=== PATIENT | female | born 1950 | race Two or more races ===

== ENCOUNTER → 2017-11-23 | Outpatient (CLI) | payer OTHER ==
[~2017-11-23] MED LIST: CALCIONATE115 MG/5 M; MULTIVITAMINS1 EAC9; VITAMIN B-1250 MC1
== END | disposition home or self-care (01) ==
LOC: LAB 08:58
DX: E21.3 Hyperparathyroidism, unspecified (principal); M81.8 Other osteoporosis without current pathological fracture; E56.1 Deficiency of vitamin K; E88.89 Other specified metabolic disorders; E83.42 Hypomagnesemia; E03.8 Other specified hypothyroidism; E55.9 Vitamin D deficiency, unspecified; M85.9 Disorder of bone density and structure, unspecified; K76.9 Liver disease, unspecified; K75.9 Inflammatory liver disease, unspecified; M81.0 Age-related osteoporosis without current pathological fracture; N95.1 Menopausal and female climacteric states; R53.83 Other fatigue; R97.1 Elevated cancer antigen 125 [CA 125]; N94.6 Dysmenorrhea, unspecified; M89.9 Disorder of bone, unspecified; M94.9 Disorder of cartilage, unspecified; Z12.11 Encounter for screening for malignant neoplasm of colon; R10.9 Unspecified abdominal pain; E21.4 Other specified disorders of parathyroid gland; E21.5 Disorder of parathyroid gland, unspecified; E78.2 Mixed hyperlipidemia; E11.9 Type 2 diabetes mellitus without complications; R50.9 Fever, unspecified; R50.2 Drug induced fever; B33.8 Other specified viral diseases; B34.8 Other viral infections of unspecified site; I10 Essential (primary) hypertension; N30.00 Acute cystitis without hematuria; N92.6 Irregular menstruation, unspecified; D64.89 Other specified anemias; D50.8 Other iron deficiency anemias; E83.32 Hereditary vitamin D-dependent rickets (type 1) (type 2); E83.59 Other disorders of calcium metabolism; D39.8 Neoplasm of uncertain behavior of other specified female genital organs

== ENCOUNTER → 2017-12-03 11:04 | Outpatient (CLI) | payer OTHER | END | disposition home or self-care (01) | LOC: LAB 11:04 | DX: N60.12 Diffuse cystic mastopathy of left breast (principal); N60.11 Diffuse cystic mastopathy of right breast; E83.59 Other disorders of calcium metabolism; D39.8 Neoplasm of uncertain behavior of other specified female genital organs; N93.0 Postcoital and contact bleeding; Z12.11 Encounter for screening for malignant neoplasm of colon; R10.9 Unspecified abdominal pain ==

== ENCOUNTER → 2018-03-07 | Emergency (ER) | payer OTHER ==
[~2018-03-07] VITALS: Ht 152.4 cm; Wt 65.8 kg
== END | disposition home or self-care (01) ==
LOC: ER 15:37
DX: K57.32 Diverticulitis of large intestine without perforation or abscess without bleeding (principal)

== ENCOUNTER → 2018-07-22 07:05 | Outpatient (CLI) | payer OTHER | END | disposition home or self-care (01) | LOC: LAB 07:05 | DX: E55.9 Vitamin D deficiency, unspecified (principal); M85.9 Disorder of bone density and structure, unspecified; E21.2 Other hyperparathyroidism; M81.8 Other osteoporosis without current pathological fracture; E56.1 Deficiency of vitamin K; E88.89 Other specified metabolic disorders; E83.42 Hypomagnesemia; N92.5 Other specified irregular menstruation; N94.0 Mittelschmerz; N95.1 Menopausal and female climacteric states; R68.82 Decreased libido; E88.81 Metabolic syndrome and other insulin resistance; I10 Essential (primary) hypertension; E03.8 Other specified hypothyroidism; R19.09 Other intra-abdominal and pelvic swelling, mass and lump; E11.9 Type 2 diabetes mellitus without complications; R94.7 Abnormal results of other endocrine function studies; E78.2 Mixed hyperlipidemia ==

== ENCOUNTER 2018-08-12 11:37 | Outpatient (CLI) | payer OTHER | END 2018-08-12 16:25 | disposition home or self-care (01) | LOC: RAD 11:37 | DX: M17.0 Bilateral primary osteoarthritis of knee (principal) ==

== ENCOUNTER 2021-05-21 14:29 | Outpatient (CLI) | payer OTHER | END 2021-05-21 14:33 | disposition home or self-care (01) | LOC: RAD 14:29 | PROVIDERS: ATTEND Orthopaedic Surgery | DX: M25.551 Pain in right hip (principal) ==

== ENCOUNTER → 2021-09-11 08:16 | Outpatient (CLI) | payer OTHER | END | disposition home or self-care (01) | LOC: LAB 08:16 | PROVIDERS: ATTEND Orthopaedic Surgery | DX: E55.9 Vitamin D deficiency, unspecified (principal); M85.88 Other specified disorders of bone density and structure, other site; E56.1 Deficiency of vitamin K ==

== ENCOUNTER 2022-04-09 15:10 | Outpatient (CLI) | payer OTHER | END 2022-04-09 15:21 | disposition home or self-care (01) | LOC: RAD 15:10 | PROVIDERS: ATTEND Physical Medicine & Rehabilitation | DX: M25.561 Pain in right knee (principal) ==

== ENCOUNTER 2022-09-17 08:30 | Outpatient (CLI) | payer OTHER | END 2022-09-17 08:31 | disposition home or self-care (01) | LOC: LAB 08:30 | PROVIDERS: ATTEND Obstetrics & Gynecology Gynecology | DX: M81.0 Age-related osteoporosis without current pathological fracture (principal) ==

== ENCOUNTER 2022-10-08 13:35 | Outpatient (CLI) | payer OTHER | END 2022-10-08 13:47 | disposition home or self-care (01) | LOC: RAD 13:35 | PROVIDERS: ATTEND Physical Medicine & Rehabilitation | DX: M54.2 Cervicalgia (principal) ==

== ENCOUNTER 2023-11-20 16:14 | Emergency (ER) | payer OTHER ==
[~2023-11-20] VITALS: Ht 162.6 cm; Wt 67.1 kg
[2023-11-20] MEDS ORDERED: DUI500 PO (17:24)
== END 2023-11-20 17:56 | disposition home or self-care (01) ==
LOC: ER 16:16
DX: S91.311A Laceration without foreign body, right foot, initial encounter (principal); W45.8XXA Other foreign body or object entering through skin, initial encounter; Y93.89 Activity, other specified; Y92.018 Other place in single-family (private) house as the place of occurrence of the external cause; Y99.9 Unspecified external cause status; Z91.040 Latex allergy status; Z91.013 Allergy to seafood
CPT/HCPCS: 12002; 90471; 90714; 99284; J1670

== ENCOUNTER 2023-12-02 10:26 | Emergency (ER) | payer OTHER ==
[~2023-12-02] VITALS: Ht 162.6 cm; Wt 67.1 kg
[~2023-12-02 10:26] MED LIST changes: +DUI500 PO
== END 2023-12-02 13:22 | disposition home or self-care (01) ==
LOC: ER 10:27
DX: Z48.02 Encounter for removal of sutures (principal); Z88.8 Allergy status to other drugs, medicaments and biological substances; Z91.040 Latex allergy status; Z91.013 Allergy to seafood

== ENCOUNTER → 2024-07-15 11:29 | Outpatient (CLI) | payer OTHER | END | disposition home or self-care (01) | LOC: RAD 11:29 | PROVIDERS: ATTEND Obstetrics & Gynecology Gynecology | DX: I10 Essential (primary) hypertension (principal) ==

== ENCOUNTER 2024-07-24 05:23 | Day surgery (SDC) | payer OTHER ==
[2024-07-19 13:13] VITALS: BP 140/85
[~2024-07-24] VITALS: Ht 162.6 cm; Wt 68.0 kg
[~2024-07-24 05:23] MED LIST changes: +B12 ACTIVE1000 MCG PO; +CLARITIN10 M1 PO; +OMEGA-31000 MG PO; +VIT D3-VIT K21 EACH PO
[2024-07-24] MEDS ORDERED: IBU600 MG PO (08:15)
[2024-07-24] MEDS ORDERED: POVIDONE-IODINE 118 ML BOTT TOP ONE (09:00)
== END 2024-07-24 11:25 | disposition home or self-care (01) ==
LOC: CIR.AMB 05:23
PROVIDERS: ATTEND Obstetrics & Gynecology Gynecology
DX: N85.00 Endometrial hyperplasia, unspecified (principal); R87.610 Atypical squamous cells of undetermined significance on cytologic smear of cervix (ASC-US); Z88.6 Allergy status to analgesic agent; Z91.040 Latex allergy status; Z91.013 Allergy to seafood; I10 Essential (primary) hypertension

== ENCOUNTER 2024-08-09 12:00 | Inpatient (IN) | payer OTHER ==
[~2024-08-09] VITALS: Ht 157.5 cm; Wt 68.0 kg
[~2024-08-09 12:00] MED LIST changes: +IBU600 MG PO
[2024-08-09 14:42] VITALS: BP 122/79
[2024-08-15] MEDS ORDERED: FLONASE16 GM (11:02)
[2024-08-15] MEDS ORDERED: ESTRADIOL10 MCG (11:02)
[2024-08-15] MEDS ORDERED: METRONIDAZOLE/SODIUM CHLORIDE 200 ML IV ONE (12:30)
[2024-08-15] MEDS ORDERED: CEFTRIAXONE SODIUM 2,000 MG in 0.9 % SODIUM CHLORIDE 50 ML IV ONE (12:30)
[2024-08-15] MEDS ORDERED: MORPHINE SULFATE 4 MG/ML CARTRIDGE IV PRN (14:15)
[2024-08-15] MEDS ORDERED: RINGERS SOLUTION,LACTATED 1,000 ML IV SCH (14:15)
[2024-08-15] MEDS ORDERED: ONDANSETRON HCL 2 MG/ML VIAL IV PRN (14:15)
[2024-08-15] MEDS ORDERED: OxyCODONE HCL 5 MG TABLET (ROXICODONE) PO PRN (14:15)
[2024-08-15] MEDS ORDERED: ENALAPRILAT DIHYDRATE 1.25 MG/ML VIAL IV PRN (14:45)
[2024-08-15] MEDS ORDERED: MORPHINE SULFATE 4 MG/ML VIAL IV ONE ×2 (15:05→15:35)
[2024-08-15] MEDS ORDERED: CELECOXIB 200 MG CAPSULE PO SCH (17:00)
[2024-08-15] MEDS ORDERED: GABAPENTIN 300 MG CAPSULE PO SCH (17:00)
[2024-08-15] MEDS ORDERED: HYOSCYAMINE SULFATE 0.125 MG TAB.SUBL SL SCH (17:00)
[2024-08-15] MEDS ORDERED: METOCLOPRAMIDE HCL 5 MG/ML VIAL IV SCH (17:00)
[2024-08-15] MEDS ORDERED: POLYETHYLENE GLYCOL 3350 17 GM BLIST.PACK PO SCH (17:00)
[2024-08-15] MEDS ORDERED: SIMETHICONE 125 MG CAPSULE PO SCH (17:00)
[2024-08-15 18:40] LABS: HEMATOCRIT 42.7 % (36.0-45.00); HEMOGLOBIN 14.6 g/dL (12.0-15.00); MEAN CELL VOLUME 93.1 fL (80.00-100.00); MEAN CORPUSCULAR HEMOGLOBIN 31.8 pg (27.00-32.0); MEAN CORPUSCULAR HGB CONC 34.1 g/dl (32.0-36.0); PLATELET COUNT 250 K/uL (150-450); RED BLOOD COUNT 4.58 M/uL (4.00-6.00)
[2024-08-15 19:49] VITALS: BP 122/79; O2SAT 98
[2024-08-15] MEDS ORDERED: ACETAMINOPHEN 500 MG GEL..CAP PO SCH (20:00)
[2024-08-15] MEDS ORDERED: FAMOTIDINE/PF 20 MG/2 ML VIAL IV PUSH SCH (21:00)
[2024-08-16] VITALS: BP 92/57; O2SAT 95
[2024-08-16 07:14] LABS: HEMATOCRIT 37.2 % (36.0-45.00); HEMOGLOBIN 12.9 g/dL (12.0-15.00); MEAN CELL VOLUME 90.3 fL (80.00-100.00); MEAN CORPUSCULAR HEMOGLOBIN 31.2 pg (27.00-32.0); MEAN CORPUSCULAR HGB CONC 34.6 g/dl (32.0-36.0); PLATELET COUNT 247 K/uL (150-450); RED BLOOD COUNT 4.12 M/uL (4.00-6.00); RED CELL DISTRIBUTION WIDTH 12.4 % (11.5-14.5)
[2024-08-16 08:08] LABS: ALBUMIN 3.3 gm/dL (3.4-5.0); CREATININE SERUM 0.62 mg/dL (0.55-1.02); GFR 94.35; MAGNESIUM 1.9 mg/dL (1.8-2.4); PHOSPHOROUS 3.4 mg/dL (2.5-4.9); POTASSIUM 3.8 mEq/L (3.5-5.1)
[2024-08-16] MEDS ORDERED: LACTULOSE 20 G/30 ML BLIST.PACK PO SCH (09:00)
[2024-08-16] MEDS ORDERED: LACTOBACILLUS ACIDOPHILUS 1 CAP CAP PO SCH (09:00)
[2024-08-16 10:30] VITALS: BP 107/55; O2SAT 94
[2024-08-16 17:00] VITALS: BP 121/64; O2SAT 96
[2024-08-16] MEDS ORDERED: ENOXAPARIN SODIUM 40 MG/0.4 ML SYRINGE SUBCUTANEO SCH (17:00)
[2024-08-17] VITALS: BP 95/58; O2SAT 95
[2024-08-17 06:18] LABS: HEMATOCRIT 34.9 % (36.0-45.00); HEMOGLOBIN 12.1 g/dL (12.0-15.00); MEAN CELL VOLUME 91.2 fL (80.00-100.00); MEAN CORPUSCULAR HEMOGLOBIN 31.6 pg (27.00-32.0); MEAN CORPUSCULAR HGB CONC 34.7 g/dl (32.0-36.0); PLATELET COUNT 205 K/uL (150-450); RED BLOOD COUNT 3.83 M/uL (4.00-6.00); RED CELL DISTRIBUTION WIDTH 12.1 % (11.5-14.5)
[2024-08-17 06:54] LABS: CALCIUM 8.7 mg/dL (8.5-10.1); CREATININE SERUM 0.52 mg/dL (0.55-1.02); GFR 115.59; MAGNESIUM 1.8 mg/dL (1.8-2.4); PHOSPHOROUS 2.8 mg/dL (2.5-4.9); POTASSIUM 4.29 mEq/L (3.5-5.1)
[2024-08-17] MEDS ORDERED: ENOXAPARIN SODIUM 40 MG/0.4 ML SYRINGE SUBCUTANEO SCH (09:00)
[2024-08-17 09:30] VITALS: BP 140/66; O2SAT 96
== END 2024-08-17 15:13 | disposition home or self-care (01) | DRG 330 ==
LOC: O/R 08-15 05:37 → SURH 08-15 05:37 → O/R 08-15 14:09 → SURH 08-15 16:18
PROVIDERS: Internal Medicine Geriatric Medicine; ADMIT Colon & Rectal Surgery; ATTEND Colon & Rectal Surgery
PROC: 0DBP4ZZ Excision of Rectum, Percutaneous Endoscopic Approach (ICD-10-PCS; 2024-08-15)
PROC: 0DTN4ZZ Resection of Sigmoid Colon, Percutaneous Endoscopic Approach (ICD-10-PCS; principal; 2024-08-15 07:00)
DX: K57.32 Diverticulitis of large intestine without perforation or abscess without bleeding (principal); K92.1 Melena; K66.0 Peritoneal adhesions (postprocedural) (postinfection)

== ENCOUNTER 2025-03-06 08:05 | Emergency (ER) | payer OTHER ==
[~2025-03-06] VITALS: Ht 162.6 cm; Wt 68.0 kg
[~2025-03-06 08:05] MED LIST changes: +ESTRADIOL10 MCG; +FLONASE16 GM
[2025-03-06] MEDS ORDERED: FAMOTIDINE/PF 20 MG/2 ML VIAL ONE (08:36)
[2025-03-06] MEDS ORDERED: ONDANSETRON HCL 2 MG/ML VIAL ONE (08:36)
[2025-03-06] MEDS ORDERED: ONDANSETRON HCL 2 MG/ML VIAL IV ONE (08:45)
[2025-03-06] MEDS ORDERED: 0.9 % SODIUM CHLORIDE 1,000 ML IV ONE (08:45)
[2025-03-06] MEDS ORDERED: FAMOtidine 10 MG/ML (4ML VIAL) IV ONE (08:45)
[2025-03-06 09:35] LABS: HEMATOCRIT 49.4 % (36.0-45.00); HEMOGLOBIN 16.5 g/dL (12.0-15.00); MEAN CELL VOLUME 92.4 fL (80.00-100.00); MEAN CORPUSCULAR HEMOGLOBIN 30.9 pg (27.00-32.0); MEAN CORPUSCULAR HGB CONC 33.5 g/dl (32.0-36.0); PLATELET COUNT 324 K/uL (150-450); RED BLOOD COUNT 5.34 M/uL (4.00-6.00); RED CELL DISTRIBUTION WIDTH 12.6 % (11.5-14.5)
[2025-03-06 09:40] LABS: COVID-19 AG NEGATIVE (NEGATIVE)
[2025-03-06 09:41] LABS: INFLUENZA A AG NEGATIVE (NEGATIVE)
[2025-03-06 10:32] LABS: ALBUMIN 4.7 gm/dL (3.4-5.0); BILIRUBIN TOTAL 0.63 mg/dL (0.3-1.2); CALCIUM 10.1 mg/dL (8.5-10.1); CREATININE SERUM 1.44 mg/dL (0.55-1.02); GFR 35.58; GLOBULINA 4.3 G/DL (2.4-3.5); POTASSIUM 4.15 mEq/L (3.5-5.1)
[2025-03-06] MEDS ORDERED: METRONIDAZOLE500 MG PO (11:29)
[2025-03-06] MEDS ORDERED: PROTONIX40 MG PO (11:29)
[2025-03-06] MEDS ORDERED: PROBIOTIC1 EAC2 PO (11:29)
[2025-03-06] MEDS ORDERED: CIPRO500 MG PO (11:29)
[2025-03-06] MEDS ORDERED: CHOLESTYRAMINE/ASPARTAME LIGHT 4 G/PKT PACKET PO ONE (11:45)
== END 2025-03-06 14:30 | disposition home or self-care (01) ==
LOC: ER 08:05
PROVIDERS: General Practice
DX: K52.9 Noninfective gastroenteritis and colitis, unspecified (principal); R10.9 Unspecified abdominal pain; Z20.822 Contact with and (suspected) exposure to COVID-19; Z91.013 Allergy to seafood; Z91.040 Latex allergy status; Z91.041 Radiographic dye allergy status; Z91.048 Other nonmedicinal substance allergy status
CPT/HCPCS: 36415; 96365; 99282; J2405; J3490; J7030